=== PATIENT | female | born 1990 | race Caucasian/White ===

== ENCOUNTER 2020-02-19 21:00 | Emergency (ER) | payer MEDICAID ==
[~2020-02-19] VITALS: Ht 157.5 cm; Wt 78.0 kg
[2020-02-19 21:16] VITALS: Ht 157.5 cm; Wt 78.0 kg
[2020-02-19 22:10] LABS: CALCIUM 9.3 mg/dL (8.5-10.1); CARBON DIOXIDE 25.2 mmol/L (21-32); CHLORIDE SERUM 104 mmol/L (98-107); CREATININE SERUM 0.7 mg/dL (0.6-1.0); GFR1 > 60 mL/min; GLUCOSE SERUM 92 mg/dL (74-106); SODIUM SERUM 142 mmol/L (136-145)
[2020-02-19 22:13] LABS: ALBUMIN 4.3 g/dL (3.4-5.0); ALKALINE PHOSPHATASE 90 U/L (46-116); ALT/SGPT 51 U/L (14-59); AST/SGOT 31 U/L (15-37); BILIRUBIN TOTAL 0.5 mg/dL (0.20-1.00); LIPASE 124 IU/L (73-393); TOTAL PROTEIN, SERUM 8.1 g/dL (6.4-8.2)
[2020-02-19 22:36] LABS: BASOPHIL % 0.5 % (0.2-1.3); PLATELET COUNT 399 x10^3mcL (179-408); RED CELL DISTRIBUTION WIDTH 13.8 % (12.3-17.7)
[2020-02-20 02:10] VITALS: BP 135/74
== END 2020-02-20 02:10 | disposition home or self-care (01) ==
LOC: ED 21:00
DX: K80.50 Calculus of bile duct without cholangitis or cholecystitis without obstruction (principal)